=== PATIENT | female | born 1985 | race Caucasian/White ===

== ENCOUNTER 2017-05-13 09:21 | Emergency (ER) | payer OTHER ==
--- NOTE | 2017-05-13 09:48 | EDM.PDOC ---
ED HPI GENERAL MEDICAL PROBLEM - General Chief Complaint: Head Injury Stated Complaint: HEAD INJURY Time Seen by Provider: 05/13/17 09:31 Source of Information: Reports: Patient, RN Notes Reviewed History Limitations: Reports: No Limitations - History of Present Illness INITIAL COMMENTS - FREE TEXT/NARRATIVE: The patient states that she was loading pallets into a metal container, when one , that was standing up behind her, fell over, striking her on the back of her head, around 08:30 this morning, while at work at [employer]. The patient states that she was bending over at the time, and the blow knocked her to her knees, but there was no loss of consciousness. She states that she went to the walk-in clinic, but was sent here. At present, the patient is complaining of a headache and neck pain. No prior head injury. The patient does not have a PCP. Posterior Head Pain Score (Numeric/FACES): 9 - Related Data Allergies Allergy/AdvReac Type Severity Reaction Status Date / Time No Known Allergies Allergy Verified 05/13/17 09:29 Home Meds: Home Meds . [No Known Home Meds] 05/13/17 [History] Past Medical History - Past Health History Medical/Surgical History: Denies Medical/Surgical History Social & Family History - Tobacco Use Smoking Status *Q: Never Smoker - Alcohol Use Alcohol Use History: Yes Alcohol Use Frequency: Rarely - Recreational Drug Use Recreational Drug Use: No - Living Situation & Occupation Living situation: Reports: Single, Alone Occupation: Employed ([employer]) ED ROS GENERAL - Review of Systems Review Of Systems: See Below Constitutional: Reports: No Symptoms HEENT: Reports: Other (Viral URI symptoms for past several weeks) Respiratory: Reports: No Symptoms Cardiovascular: Reports: No Symptoms Endocrine: Reports: No Symptoms GI/Abdominal: Reports: No Symptoms : Reports: No Symptoms Musculoskeletal: Reports: No Symptoms Skin: Reports: No Symptoms Neurological: Reports: No Symptoms Psychiatric: Reports: No Symptoms Hematologic/Lymphatic: Reports: No Symptoms Immunologic: Reports: No Symptoms ED EXAM, HEAD INJURY - Physical Exam Exam: See Below Exam Limited By: No Limitations General Appearance: Alert, WD/WN, No Apparent Distress Head: Normocephalic, Other (Faint abrasion, measuring approximately 0.5 cm diameter, with very slight scalp swelling, noted to the left occiput. Barely palpable swelling noted to the right occiput, with no visible abnormality. Both areas are tender to palpation.) Eyes: Bilateral Eye: EOMI, Normal Inspection, PERRL Ears: Normal External Exam, Hearing Grossly Normal Nose: Normal Inspection, No Blood Throat/Mouth: Normal Inspection, Normal Lips, Normal Voice, No Airway Compromise Neck: Non-Tender, Full Range of Motion, Normal Alignment, Normal Inspection Respiratory: No Respiratory Distress, Lungs Clear, Normal Breath Sounds, No Accessory Muscle Use Cardiovascular: Normal Peripheral Pulses, Regular Rate, Rhythm, No Gallop, No JVD, No Murmur, No Rub GI/Abdominal Exam: Normal Bowel Sounds, Soft, Non-Tender, No Organomegaly, No Distention, No Abnormal Bruit, No Mass (Female) Exam: Deferred Rectal (Female) Exam: Deferred Back Exam: Full Range of Motion, Normal Inspection, NT Extremities: Normal Inspection, Normal Range of Motion, No Pedal Edema, Normal Capillary Refill Neurologic: healthcare technician II-XII nml As Tested, No Motor/Sensory Deficits, Alert, Oriented x 3, Other (Right-handed) Skin: Normal Color, Warm/Dry Course - Vital Signs Last Recorded V/S: Last Vital Signs Temp 36.3 C 05/13/17 09:25 Pulse 74 05/13/17 09:25 Resp 16 05/13/17 09:25 BP 129/85 05/13/17 09:25 Pulse Ox 100 05/13/17 09:25 - Re-Assessments/Exams Free Text/Narrative Re-Assessment/Exam: 05/13/17 09:44 The patient suffered a relatively minor strength to the back of her head, leaving only a trace abrasion to the posterior scalp, no loss of consciousness, and a normal neurologic exam. Under these circumstances, a CT scan of the head is not indicated. I offered ibuprofen, but the patient declined. Departure - Departure Time of Disposition: 09:44 Disposition: Home, Self-Care 01 Condition: Good Clinical Impression: Scalp contusion - Discharge Information Instructions: Facial or Scalp Contusion, [id number] Referrals: PCP,None [Primary Care Provider] - Forms: ED Department Discharge Additional Instructions: You were seen in the emergency room after being struck on the back of your head by a falling pallet. On examination, there was a small abrasion to the back of the scalp, otherwise, no significant physical injury. As there was no loss of consciousness, and you had a normal neurologic examination, a CT scan of your head was not indicated. We recommend you take [id number] Tylenol or ibuprofen as needed for discomfort. If any other problems, please do not hesitate to return to the ER.
== END 2017-05-13 10:05 | disposition home or self-care (01) ==
LOC: JD.ED 09:21
DX: S00.03XA Contusion of scalp, initial encounter (principal); W20.8XXA Other cause of strike by thrown, projected or falling object, initial encounter; Y93.89 Activity, other specified; Y99.0 Civilian activity done for income or pay
CPT/HCPCS: 99283; 99284